=== PATIENT | female | born 1930 | race Caucasian/White ===

== ENCOUNTER 2019-01-31 13:31 | Emergency (ER) | payer MEDICARE, BC ==
[~2019-01-31] VITALS: Ht 152.4 cm; Wt 49.5 kg
[~2019-01-31 13:31] MED LIST: CARB-87 PO; DEXL60CA3 PO; DILT-94 PO; FURO-150 PO
--- NOTE | 2019-01-31 13:48 | NUR ---
DR DIEZ INFORMED OF PT RECENT FALL, NO BLOOD THINNERS, NO LOC, NO C-SPINE TENDERSON, [facility] FALL HITTING FACE AND NOSE, NO ORDER RECEIVED AT THIS TIME, PRIMARY NURSE UPDATED TO PT CURRENT STATUS AND EVENT WELL NOTIFICATION OF PROVIDER.
[2019-01-31 15:35] VITALS: BP 131/72
== END 2019-01-31 15:36 | disposition home or self-care (01) ==
LOC: ER 13:32
DX: S02.2XXA Fracture of nasal bones, initial encounter for closed fracture (principal); S80.212A Abrasion, left knee, initial encounter; Z88.1 Allergy status to other antibiotic agents; Z79.899 Other long term (current) drug therapy; W18.39XA Other fall on same level, initial encounter; Y93.89 Activity, other specified; Y92.89 Other specified places as the place of occurrence of the external cause; Y99.8 Other external cause status; G89.29 Other chronic pain
CPT/HCPCS: 70450; 70486; 99284